=== PATIENT | female | born 1980 | race African-American/Black ===

== ENCOUNTER 2016-08-16 22:38 | Emergency (ER) | payer OTHER ==
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
[2016-08-17 03:45] VITALS: BP 125/77
== END 2016-08-17 02:19 | disposition home or self-care (01) ==
LOC: ER 22:38
DX: S16.1XXA Strain of muscle, fascia and tendon at neck level, initial encounter (principal); V49.40XA Driver injured in collision with unspecified motor vehicles in traffic accident, initial encounter; M54.2 Cervicalgia; Z88.8 Allergy status to other drugs, medicaments and biological substances
CPT/HCPCS: 99284; 72125; L0120

== ENCOUNTER 2019-05-19 09:09 | Emergency (ER) | payer BC ==
[2019-05-19 09:48] LABS: APPEARANCE,URINE SLIGHTLY-CLOUDY; BILIRUBIN,URINE NEGATIVE (NEGATIVE); COLOR,URINE RED; GLUCOSE, URINE NEGATIVE (NEGATIVE); KETONES,URINE NEGATIVE (NEGATIVE); LEUKOCYTE ESTERASE,URINE NEGATIVE (NEGATIVE); NITRITE,URINE NEGATIVE (NEGATIVE); PROTEIN,URINE 30 mg/dL (NEGATIVE); UROBILINOGEN,URINE NEGATIVE mg/dL (<2.0)
[2019-05-19 11:14] LABS: ABSOLUTE LYMPHOCYTES (AUTO) 1.4 10^3/uL (0.5-4.7); ABSOLUTE MONOCYTES (AUTO) 0.2 10^3/uL (0.1-1.4); ABSOLUTE NEUT (AUTO) 0.8 10^3/uL (1.7-8.2); BASOPHILS % (AUTO) 1.2 % (0-2); EOSINOPHILS % (AUTO) 1.3 % (0-6); HEMATOCRIT 38.1 % (36.0-47.0); HEMOGLOBIN 12.9 g/dL (12.0-15.5); LYMPHOCYTES % (AUTO) 58.1 % (13-45); MEAN CORPUSCULAR HEMOGLOBIN 29.7 pg (27.0-33.4); MEAN CORPUSCULAR HGB CONC 33.8 g/dL (32.0-36.0); MEAN CORPUSCULAR VOLUME 88 fl (80-97); MONOCYTES % (AUTO) 7.4 % (3-13); PLATELET COUNT 231 10^3/uL (150-450); RED BLOOD COUNT 4.33 10^6/uL (3.72-5.28); RED CELL DISTRIBUTION WIDTH 13.2 % (11.5-14.0); TOTAL CELLS COUNTED % (AUTO) 100 %; WHITE BLOOD COUNT 2.4 10^3/uL (4.0-10.5)
[2019-05-19 11:33] LABS: ALBUMIN 4.3 g/dL (3.5-5.0); ALKALINE PHOSPHATASE 50 U/L (38-126); ANION GAP 8 (5-19); ASPARTATE AMINO TRANSFERASE 20 U/L (14-36); BILIRUBIN,TOTAL 0.9 mg/dL (0.2-1.3); BLOOD UREA NITROGEN 7 mg/dL (7-20); CALCIUM 9.8 mg/dL (8.4-10.2); CARBON DIOXIDE 25 mmol/L (22-30); CHLORIDE 106 mmol/L (98-107); GLUCOSE 91 mg/dL (75-110); POTASSIUM 4.7 mmol/L (3.6-5.0); TOTAL PROTEIN 7.5 g/dL (6.3-8.2)
--- NOTE | 2019-05-19 12:02 | ER Document Report ---
ED General - General Chief Complaint: Vag Bleeding, +preg <12wks Stated Complaint: POSSIBLE MISCARRIAGE Time Seen by Provider: 05/19/19 10:24 Primary Care Provider: ARI STEARNS MD [Primary Care Provider] - Follow up in 3-5 days Mode of Arrival: Ambulatory Information source: Patient Notes: This 38-year-old G2, P1 female presents emergency department with reports that she is approximately 4 weeks . She reports she had a test done by Dr. Stearns's office May 16. She reports she started having abdominal pain at 0400 a.m. She reports it is cramping. She noted a brown vaginal discharge ended 08 100 she started experience dark brown clots. She also reports that she has a history of anxiety and she could feel her heart pounding. She complains of nausea. She declines pain medication. Denies fever vomiting diarrhea TRAVEL OUTSIDE OF THE [place] 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 Lives with: Family Family History: Reviewed & Not Pertinent Patient has suicidal ideation: No Patient has homicidal ideation: No - Past Medical History Cardiac Medical History: Reports: Hx Hypertension - gestational HTN Renal/ Medical History: Denies: Hx Peritoneal Dialysis Past Surgical History: Reports: Hx Section Review of Systems - Review of Systems Notes: Review HPI for review of systems., All other systems negative Physical Exam - Vital signs Vitals: Temp Pulse Resp BP Pulse Ox 99.2 F 77 18 139/74 H 100 05/19/19 09:15 05/19/19 09:15 05/19/19 09:15 05/19/19 09:15 05/19/19 09:15 - Notes Notes: PHYSICAL EXAMINATION: GENERAL: Well-appearing and in no acute distress HEAD: Atraumatic, normocephalic. EYES: Pupils equal round and reactive to light, extraocular movements intact, sclera anicteric, conjunctiva are normal. ENT: nares patent, oropharynx clear without exudates. Moist mucous membranes. NECK: Normal range of motion, supple without lymphadenopathy LUNGS: CTAB and equal. No wheezes rales or rhonchi. HEART: Regular rate and rhythm without murmurs ABDOMEN: Soft, no tenderness. No guarding, no rebound EXTREMITIES: Normal range of motion, no pitting edema. No cyanosis. NEUROLOGICAL: Cranial nerves grossly intact. Normal sensory/motor exams. PSYCH: Normal mood, normal affect. SKIN: Warm, Dry, normal turgor, no rashes or lesions noted Course - Re-evaluation Re-evalutation: 05/19/19 12:01 38-year-old female presents with abdominal cramping and spotting. Reports that she is approximately 4 weeks . hCG via UA was negative. We repeated the labs serum hCG quant is negative. Patient was instructed on these results. Patient was also instructed to follow-up with Dr. Stearns her provider. She reports Dr. Stearns prescribed BuSpar in the past for her anxiety. 05/19/19 11:03 05/19/19 11:03 MCV 88 fl (80-97) 05/19/19 11:03 MCH 29.7 pg (27.0-33.4) 05/19/19 11:03 MCHC 33.8 g/dL (32.0-36.0) 05/19/19 11:03 RDW 13.2 % (11.5-14.0) 05/19/19 11:03 Seg Neutrophils % 32.0 % (42-78) L 05/19/19 11:03 Chloride 106 mmol/L (98-107) 05/19/19 11:03 Carbon Dioxide 25 mmol/L (22-30) 05/19/19 11:03 Anion Gap 8 (5-19) 05/19/19 11:03 Est GFR ( Amer) > 60 (>60) 05/19/19 11:03 Glucose 91 mg/dL (75-110) 05/19/19 11:03 Calcium 9.8 mg/dL (8.4-10.2) 05/19/19 11:03 Total Bilirubin 0.9 mg/dL (0.2-1.3) 05/19/19 11:03 AST 20 U/L (14-36) 05/19/19 11:03 Alkaline Phosphatase 50 U/L (38-126) 05/19/19 11:03 Total Protein 7.5 g/dL (6.3-8.2) 05/19/19 11:03 Albumin 4.3 g/dL (3.5-5.0) 05/19/19 11:03 Urine Color RED 05/19/19 09:30 Urine Appearance SLIGHTLY-CLOUDY 05/19/19 09:30 Urine pH 7.0 (5.0-9.0) 05/19/19 09:30 Ur Specific [place] 1.010 05/19/19 09:30 Urine Protein 30 mg/dL (NEGATIVE) H 05/19/19 09:30 Urine Glucose (UA) NEGATIVE mg/dL (NEGATIVE) 05/19/19 09:30 Urine Ketones NEGATIVE mg/dL (NEGATIVE) 05/19/19 09:30 Urine Blood LARGE (NEGATIVE) H 05/19/19 09:30 Urine Nitrite NEGATIVE (NEGATIVE) 05/19/19 09:30 Ur Leukocyte Esterase NEGATIVE (NEGATIVE) 05/19/19 09:30 Urine WBC (Auto) 3 /HPF 05/19/19 09:30 Urine RBC (Auto) >182 /HPF 05/19/19 09:30 Dictation of this chart was performed using voice recognition software; therefore, there may be some unintended grammatical errors. - Vital Signs Vital signs: Temp Pulse Resp BP Pulse Ox 98.4 F 74 18 118/81 100 05/19/19 12:16 05/19/19 12:16 05/19/19 12:16 05/19/19 12:16 05/19/19 12:16 - Laboratory Result Diagrams: 05/19/19 11:03 05/19/19 11:03 Laboratory results interpreted by me: 05/19/19 05/19/19 09:30 11:03 WBC 2.4 L Lymph % (Auto) 58.1 H Absolute Neuts (auto) 0.8 L Seg Neutrophils % 32.0 L Urine Protein 30 H Urine Blood LARGE H Discharge - Discharge Clinical Impression: Abdominal cramps, Vaginal spotting Condition: Stable Disposition: HOME, SELF-CARE Instructions: Abdominal Pain ([facility]) Additional Instructions: *You have been evaluated for abdominal cramping, vaginal spotting *Your tests were negative *Follow up with Dr Stearns within one week *Take motrin as indicated *Return to ED for worsening condition, changes, needs *Return to ED if not better in 24 hours Forms: Return to Work Referrals: ARI STEARNS MD [Primary Care Provider] - Follow up in 3-5 days
[2019-05-19 12:16] VITALS: BP 118/81
== END 2019-05-19 12:16 | disposition home or self-care (01) ==
LOC: ER 09:09
DX: O26.851 Spotting complicating pregnancy, first trimester (principal); O26.891 Other specified pregnancy related conditions, first trimester; R10.9 Unspecified abdominal pain; R11.0 Nausea; Z88.8 Allergy status to other drugs, medicaments and biological substances; Z3A.01 Less than 8 weeks gestation of pregnancy
CPT/HCPCS: 36415; 80053; 81001; 81025; 84702; 85025; 99284

== ENCOUNTER 2019-09-26 08:49 | Day surgery (SDC) | payer BC, MEDICAID ==
[2019-09-26 09:34] LABS: ABSOLUTE EOSINOPHILS # (AUTO) 0.1 10^3/uL (0.0-0.6); ABSOLUTE LYMPHOCYTES (AUTO) 1.5 10^3/uL (0.5-4.7); ABSOLUTE MONOCYTES (AUTO) 0.2 10^3/uL (0.1-1.4); ABSOLUTE NEUT (AUTO) 1.6 10^3/uL (1.7-8.2); BASOPHILS % (AUTO) 1.1 % (0-2); EOSINOPHILS % (AUTO) 1.7 % (0-6); HEMATOCRIT 37.8 % (36.0-47.0); HEMOGLOBIN 13.4 g/dL (12.0-15.5); LYMPHOCYTES % (AUTO) 44.1 % (13-45); MEAN CORPUSCULAR HEMOGLOBIN 30.8 pg (27.0-33.4); MEAN CORPUSCULAR HGB CONC 35.5 g/dL (32.0-36.0); MEAN CORPUSCULAR VOLUME 87 fl (80-97); MONOCYTES % (AUTO) 6.4 % (3-13); PLATELET COUNT 226 10^3/uL (150-450); RED BLOOD COUNT 4.36 10^6/uL (3.72-5.28); RED CELL DISTRIBUTION WIDTH 13.4 % (11.5-14.0); SEGMENTED NEUTROPHILS % (AUTO) 46.7 % (42-78); TOTAL CELLS COUNTED % (AUTO) 100 %; WHITE BLOOD COUNT 3.4 10^3/uL (4.0-10.5)
[2019-09-26 09:41] LABS: APPEARANCE,URINE SLIGHTLY-CLOUDY; BILIRUBIN,URINE NEGATIVE (NEGATIVE); COLOR,URINE YELLOW; GLUCOSE, URINE NEGATIVE (NEGATIVE); KETONES,URINE NEGATIVE (NEGATIVE); LEUKOCYTE ESTERASE,URINE TRACE (NEGATIVE); NITRITE,URINE NEGATIVE (NEGATIVE); PROTEIN,URINE NEGATIVE (NEGATIVE); URINE SPECIFIC GRAVITY 1.015; UROBILINOGEN,URINE NEGATIVE mg/dL (<2.0)
[2019-09-26] MEDS ORDERED: MIDAZOLAM 2 MG/2 ML INJ ONE (10:19)
[2019-09-26] MEDS ORDERED: ONDANSETRON HCL INJ/PF 4 MG/2 ML SDV ONE (10:19)
[2019-09-26] MEDS ORDERED: FENTANYL CITRATE INJ/PF 100 MCG/2 ML AMPUL ONE (10:19)
[2019-09-26] MEDS ORDERED: PROPOFOL INJ 200 MG/20 ML VIAL IV ONE (10:20)
[2019-09-26] MEDS ORDERED: KETAMINE HCL INJ 500 MG/10 ML VIAL ONE (10:28)
[2019-09-26] MEDS ORDERED: MEPERIDINE HCL/PF INJ 25 MG/1 ML DISP.SYRIN IV PRN (10:32)
[2019-09-26] MEDS ORDERED: DIPHENHYDRAMINE HCL 50 MG/ML VIAL IV PRN (10:32)
[2019-09-26] MEDS ORDERED: PROMETHAZINE HCL INJ 25 MG/1 ML VIAL IV PRN ×2 (10:32)
[2019-09-26] MEDS ORDERED: FENTANYL CITRATE INJ/PF 100 MCG/2 ML AMPUL IV PRN ×3 (10:32)
[2019-09-26] MEDS ORDERED: ONDANSETRON HCL INJ/PF 4 MG/2 ML SDV IV PRN (10:32)
[2019-09-26] MEDS ORDERED: IBUPROFEN 800 MG TABLET PO PRN (11:24)
[2019-09-26] MEDS ORDERED: KETOROLAC TROMETHAMINE INJ/PF 30 MG/1 ML SDV IV PRN (11:24)
[2019-09-26] MEDS ORDERED: OXYCODONE-ACETAMINOPHEN 5-325 MG TABLET PO PRN ×2 (11:24)
[2019-09-26] MEDS ORDERED: RINGERS SOLUTION,LACTATED 1,000 ML IV PRN (11:24)
--- NOTE | 2019-09-26 11:30 | Operative Report ---
Operative Report DATE OF SURGERY: 09/26/19 PREOPERATIVE DIAGNOSIS: incomplete POSTOPERATIVE DIAGNOSIS: same OPERATION: suction D&C SURGEON: RICHAR JOSEPH ANESTHESIA: LMAC TISSUE REMOVED OR ALTERED: Products of conception COMPLICATIONS: None ESTIMATED BLOOD LOSS: 50 cc INTRAOPERATIVE FINDINGS: Uterus sounded to 8 cm minimal amount of tissue obtained consistent with empty gestational sac PROCEDURE: Patient was taken to the operating room prepared and draped in a normal sterile fashion in a dorsal lithotomy position. An in and out cath was performed of approximately 100 cc of clear urine. Sterile speculum was placed into the vagina and the cervix was prepped with Betadine and grasped on the anterior lip with a single-tooth tenaculum. The uterus was sounded to the above findings. The cervix was dilated to accommodate an 8 mm curved curette. The curved curette was passed x3 under suction and a small amount of decidual type tissue was removed. Curettage was performed using Kevorkian curette. Good great was noted 360 degrees around. More pass with the suction curette no further tissue. The procedure was then concluded Metzenbaums were removed sponge lap and needle counts were correct x2. She was taken to recovery in stable condition
[2019-09-26 13:42] VITALS: BP 131/79
== END 2019-09-26 13:25 | disposition home or self-care (01) ==
LOC: OROUT 08:49
PROVIDERS: ATTEND Obstetrics & Gynecology
DX: O02.1 Missed abortion (principal); J45.20 Mild intermittent asthma, uncomplicated; I10 Essential (primary) hypertension
CPT/HCPCS: 36415; 85025; 81001; 88305 ×2; 01965; 59820; J2250; J3010; J3490; J2405; J2704; 1965